=== PATIENT | female | born 1945 | race Caucasian/White ===

== ENCOUNTER 2021-11-07 10:00 | Outpatient (RCR) | payer OTHER, SELFPAY | END 2021-11-07 10:43 | disposition home or self-care (01) | LOC: HO.PT 10:00 | PROVIDERS: PCP Student in an Organized Health Care Education/Training Program; Visit Provider Obstetrics & Gynecology | DX: N39.3 Stress incontinence (female) (male) (principal) | CPT/HCPCS: 97112; 97161; 97530 ==

== ENCOUNTER 2025-02-21 13:13 | Emergency (ER) | payer OTHER, SELFPAY ==
--- NOTE | ~2025-02-21 | XR_ITS ---
EXAMINATION: XR CHEST CLINICAL INFORMATION: Mental status change COMPARISON: None available. TECHNIQUE: Frontal view of the chest was obtained. FINDINGS: The cardiac, hilar, and mediastinal contours are normal. Aortic mural calcifications. The lungs are clear bilaterally. No pneumothorax or effusion. No focal osseous or soft tissue abnormality. XR/XR chest 1V IMPRESSION: No active pulmonary disease. Electronically signed by: Gabino Caraballo MD 02/21/2025 02:44 PM EDT
[2025-02-21 13:34] VITALS: BP 160/98; PULSE 88; O2SAT 100
[2025-02-21 13:54] VITALS: BP 145/51; PULSE 92; RESP 18; TEMP 36.6; O2SAT 97; BMI 29.1
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
[2025-02-21 14:26] VITALS: BP 153/51; PULSE 94; RESP 14; TEMP 36.6; O2SAT 97
[2025-02-21 14:27] LABS: Hematocrit 43.3 % (37.0-47.0); Hemoglobin 14.0 g/dl (12.0-16.0); Imm Gran Abs Auto 0.03 X10*3/uL (0.00-0.03); Imm Gran Pct Auto 0.5 % (0.0-0.4); Lymphocytes Absolute Auto 0.7 X10*3/uL (1.2-4.9); MANUAL DIFF FLAG NO; Mean Corpuscular HGB Conc 32.3 g/dl (31.0-35.0); Mean Corpuscular Hemoglobin 28.6 pg (27.0-33.0); Mean Corpuscular Volume 88.5 fL (80.0-98.0); NRBC Abs Auto 0.000 X10*3/uL (0.0-0.012); NRBC Pct Auto 0.0 /100WBC (0.0-0.2); Platelet Count 155 X10*3/uL (160-400); Red Blood Count 4.89 X10*6/uL (4.20-5.50); White Blood Count 6.5 X10*3/uL (4.8-10.8)
[2025-02-21 14:31] LABS: Appearance Urine Clear; Glucose Urine UA Negative (Negative); PH 5.5 (5.0-9.0); Specific Gravity - Urine 1.010 (1.005-1.025)
[2025-02-21 14:48] LABS: Alanine Aminotransferase 24 U/L (0-31); Albumin Level 3.8 g/dL (3.5-5.0); Alkaline Phosphatase 62 U/L (39-117); Anion Gap 12 (12-20); Aspartate Amino Transferase 26 U/L (5-31); Blood Urea Nitrogen 10 mg/dL (9-16); Calcium 9.3 mg/dL (8.4-10.2); Carbon Dioxide 25 mmol/L (22-29); Chloride 104 mmol/L (96-108); Creatinine Clr Calc Pharmacy 41.4; Estimated Glomerular Filt Rate > 60; Lipase 19 U/L (8-78); Potassium 4.3 mmol/L (3.3-5.1); Sodium 137 mmol/L (135-145); Total Protein 6.4 g/dL (6.5-8.0)
[2025-02-21 14:57] LABS: Troponin-I High Sensitivity 13.2 ng/L (<3.5-17.0)
[2025-02-21 15:13] LABS: Resp Syncy Virus RNA Qual PCR NEGATIVE (Negative); SARS COV2 PCR INHOUSE NEGATIVE (Negative)
--- NOTE | 2025-02-21 18:00 | PC.NURSE ---
care team at bedside evaluating pt, pt is refereed for a psych consult
[2025-02-21 18:03] VITALS: BP 163/62; PULSE 85; RESP 18; O2SAT 100
--- OUTSIDE RECORDS SUMMARY | 2025-02-21 18:30 | XMS_ITS | Data Portability ---
Author Organization [email or web address] [facility], Ne in[employer] [facility] Address [address] [place] [address] Care Team Providers Care Insurance Assistant Name Role Phone HIM CCA OTHER SHANKAR CONNELL Primary Care Provider Assessment Encounter Date Assessment Date Assessment LastModified by Organization Details LastModified Time 09/11/2024 09/11/2024 Impression: 79yo/f with hx of HTN, HL, but no prior CHF diagnosis presents with 2-3 weeks of gradual onset bilateral pedal edema and mild dyspnea on exertion. [facility] called for evaluation by family member. Patient states has been in usual state of health, over above timeframe developed mild but gradually increased pedal edema bilaterally. States no history of the same, states not on a diuretic. No associated pain or redness in the lower extremities, no change in color or temperature. No associated numbness/weaknes s/paresthesias in the extremity, ambulating comfortably. No associated chest pain, back pain, pleurisy, however does endorse some mild dyspnea on exertion. Is walking in the home with medics without any increased work of breathing or respiratory distress. Her vitals show that she is mildly hypertensive but no tachycardia, no hypoxia. Her lungs are CTAB on medic exam, no wheezes/crackles /rhonchi. Rest of her exam is WNL. Plan: Clinical description of the event is consistent with what sounds to be venous insufficiency or mild CHF from hypertensive heart disease. Patient will need formal echo and in person evaluation for formal diagnosis. Underwent labs today to evaluate for other causes, including renal failure or anemia, labs today are unremarkable. Patient feels comfortable remaining at home and following up with PMD for further evaluation and treatment of edema, I believe it's reasonable to start her on low dose lasix until she can discuss with her PMD more definitive treatments. Instructed to reach out today to arrange followup in the next 1-2 days, instructed to monitor her symptoms at home and reach out immediately with any acute worsening or change in symptoms which she understands. Discharged from visit with mandatory timed followup and strict return instructions reviewed. Primary care, consider 48 hour followup Disposition: We discussed the diagnostic uncertainty of home visits and the risk associated with this. In this case, the patient and I felt this to be an acceptable and reasonable amount of risk given the benefit of avoiding an ED visit. We discussed the need to seek care urgently/emergen tly in the setting of any new or worsening serious symptoms [email or web address] Not available 09/11/2024 15:50:33 12/04/2024 12/04/2024 I provided real -time medical direction via phone for this encounter, and was available for additional phone based assistance as needed. I have reviewed and agree with the Assessment and Plan as documented by the Research Animal Facility Supervisor. We discussed the diagnostic uncertainty of home visits and the risk associated with this. In this case the patient and I felt this to be an acceptable and reasonable amount of risk given the benefit of avoiding an ED visit. The patient given the opportunity to ask questions. Advised if develops CP/severe SOB/turning blue/uncontrolle d n/v/d /AMS/ syncope/ hi fever/hot red or cold blue painful legs to call 911- she verbalized understanding of instructions to the medic pily Not available 12/05/2024 19:00:18 Plan of Treatment Reminders Order Date Submit Date Provider Last Modified By Organization Details Last Modified Time Details Appointments None recorded. Lab BMP, serum or plasma 2024 025 [facility], [address] [place] [address], [id number] 15:49:30 BMP, serum or plasma [address], [phone] 16:27:56 hemoglobin + hematocrit, blood [address], [id number] 16:28:31 Referral None recorded. Procedures None recorded. Surgeries None recorded. Imaging None recorded. Medication Orders furosemide 10 mg/mL injection solution 2024 025 [email or web address] 0 [facility], [address] [place] [address], [address], 11:27:57 potassium chloride ER 20 mEq tablet,exte nded release [address], [address], 05:01:06 potassium chloride ER 20 mEq tablet,exte nded release [address], [address], 05:01:06 furosemide 20 mg tablet [address], [address], 15:47:10 furosemide 20 mg tablet [address] [facility] #[id number], [address] [place] [address], [address], 15:51:27 Patient TargetsNo targets recorded. Patient InstructionsNo instructions recorded. Reason for Referral None Reported. Results Created Date Observation Date Name Description Value Unit Range Abnormal Flag Note LastModifiedBy Organization Detail LastModifiedTime Result Notes None recorded. Medical Equipment None Reported. Allergies Allergen ID Allergen Name Allergen Category Reaction Reaction Severity Criticality Documentation Date Start Date Code Code System Note Provider Name and Address Organization Details Recorded Time 35832 metoprolo l Not available Not available Not available Not available 12/05/2024 6918 RxNorm verif ied w/ quiana Thompson MD 30 [facility],[address], [place], [phone], [facility], [employer] 19:05:15 No known drug allergies Medications Name Sig Start Date Stop Date Status Note LastModified by Organization Details LastModified Time metformin 500 mg tablet TAKE 1/2 TABLET BY MOUTH 2 TIMES A DAY,X90 DAYS active Not Available Not Available No t Available atorvastati n 10 mg tablet TOME 1 TABLETA POR V A ORAL TODOS LOS D active Not Available Not Available No t Available valacyclovi r 1 gram tablet TAKE 1 TABLET BY MOUTH THREE TIMES A DAY FOR 7 DAYS WITH PLENTY OF FLUIDS active Not Available Not Available No t Available enalapril maleate 20 mg tablet TOME DOS TABLETAS POR VIA ORAL 2 TIMES A DAY FOR BLOOD PRESSURE active Not Available Not Available No t Available senna 8.6 mg tablet TOME JOSÉ MIGUEL O DOS TABLETAS POR V A ORAL AL ACOSTARSE CUANDO SEA NECESARIO FOR CONSTIPAT ION active Not Available Not Available No t Available FreeStyle Lancets 28 gauge USE DIRECTED CHECK BLOOD SUGAR DOS VECES AL D A active Not Available Not Available No t Available meclizine 12.5 mg tablet TOME JOSÉ MIGUEL TABLETA POR V A ORAL PHILIP VECES AL D A FOR 5 DAYS active Not Available Not Available No t Available chlorthalid one 25 mg tablet TOME 1 TABLETA POR V A ORAL TODOS LOS D active Not Available Not Available No t Available aspirin 81 mg tablet,priyanak yed release TOME JOSÉ MIGUEL TABLETA TODOS LOS D active Not Available Not Available No t Available acetaminoph en 500 mg tablet TOME DOS TABLETAS POR V A ORAL PHILIP VECES AL D A FOR 14 DAYS NEEDED FOR MODERATE PAIN active Not Available Not Available No t Available amlodipine 10 mg tablet TOME 1 TABLETA POR V A ORAL TODOS LOS D active Not Available Not Available No t Available hydrocortis one 1 % topical cream APPLY A THIN FILM TO AFFECTED SKIN TOPICALLY TWICE DAILY + RUB IN GENTLY AND COMPLETEL Y FOR 14 DAYS active Not Available Not Available No t Available furosemide 20 mg tablet take 2 tablets(4 0mg) daily for 4 days then 20mg daily active Not Available Not Available No t Available loratadine 10 mg tablet TOME 1 TABLETA POR V A ORAL TODOS LOS D CUANDO SEA NECESARIO FOR SINUS SYMPTOMS FOR 30 DAYS active Not Available Not Available No t Available Vitamin D3 25 mcg (1,000 unit) capsule TOME 1 C PSULA POR V A ORAL TODOS LOS D active Not Available Not Available No t Available olmesartan 20 mg-hydrochl orothiazide 12.5 mg tablet TOME JOSÉ MIGUEL TABLETA POR V A ORAL CADA MA ELIESER active Not Available Not Available No t Available budesonide- formoterol HFA 80 mcg-4.5 mcg/actuati on aerosol inhaler PLEASE SEE ATTACHED FOR DETAILED DIRECTION S active Not Available Not Available No t Available FreeStyle Lite Strips USE DIRECTED CHECK BLOOD SUGAR DOS VECES AL D A active Not Available Not Available No t Available FreeStyle [place] Lite kit CHECK TWICE A DAY active Not Available Not Available No t Available diclofenac 1 % topical gel APLIQUE AL LETTY AFECTADA CUATRO VECES AL D A active Not Available Not Available No t Available potassium chloride ER 20 mEq tablet,exte nded release Take 1 tablet every day by oral route for 4 days. 12/15 completed Not Available Not Available Not Available Vitals Date Recorded Body temperature Oxygen saturation Oxygen saturation in Arterial blood by Pulse oximetry Respiratory rate Heart rate Systolic And Diastolic Provider Name and Address Organization Details Last Updated DateTime 97.8 [degF] 99 % 99 % 18 /min 90 /min 164/96 mm[Hg] Not Available [employer] 14:49:21 Date Recorded Body weight Provider Name an d Address Organization Details Last Updated DateTime 12/04/2024 13499.86 g Juan Pablo Cespedes [address] [place] [address],[address] [facility], [place], [address], [place] - [facility] 12/05/2024 18:55:36 Date Recorded Respiratory rate Heart rate Body temperature Oxygen saturation Oxygen saturation in Arterial blood by Pulse oximetry Systolic And Diastolic Provider Name and Address Organization Details Last Updated DateTime 5 16 /min 79 /min 97.2 [degF] 99 % 99 % 170/84 mm[Hg] Not Available [employer] 11:21:08 Date Recorded Oxygen saturation Oxygen saturation in Arterial blood by Pulse oximetry Body temperature Respiratory rate Heart rate Systolic And Diastolic Provider Name and Address Organization Details Last Updated DateTime 99 % 99 % 99.6 [degF] 18 /min 95 /min 174/91 mm[Hg] Not Available [employer] 20:24:47 Social History None recorded. Functional Status None recorded. Mental Status None recorded. Family History Nothing Reported. Medical History No medical history recorded. Gynecological HistoryNo gynecological history recorded. Obstetrics History GPAL:G 0 P 0 0 0 0 Past Encounters Encounter ID Performer Location Encounter Start Date Encounter Closed Date Diagnosis/Indication Diagnosis SNOMED-CT Code Diagnosis ICD10 Code Diagnosis IMO Codes Diagnosis Note [id number] Gabino Tatum MD [address] [address] 09/11/2024 14:49:17 09/11/2024 21:01:44 Edema of foot 990360859 R60.0 [id number] Cheri Thompson MD [address] [address] 12/04/2024 11:20:56 12/05/2024 19:09:33 Peripheral edema 760115637 R60.0 [id number] Patient with normal electrolyt es and normal renal function. With increased Lasix will urinate more and could potentiall y drop her potassium so will provide potassium now and for the next 4 days. also advised since we gave meds in home to start both RX tomorrow The medic does not have any short acting potassium. Explained to take Lasix 2 tablets(40 mg) daily x 4 days then revert to 20 mg dailyEleva te legs, low-salt diet. Must follow-up with PCP.- pat verbalized understand [facility] [id number] Nieves Moreno MD [address] [address] 01/12/2025 20:24:42 01/14/2025 15:32:25 Edema of lower extremity 223110626 R60.0 [id number] 79 year old female with dementia, being evaluated for lower extremity edema for the last few days. Patient with family, who are currently managing her care, who report concerns about her long-term living arrangemen ts, and jeremiein g assisted living. She is not on a standing dose of diuretic, but instead has been on intermitte nt dosing which has just been completed. She has no respirator y symptoms. Exam notable for BP 174/91 with otherwise normal vital signs, and bilateral pitting edema, clear lungs. Presentati on suggestive of recurrent volume overload without clear etiology. Recommende d IV diuresis today, however patient's family reporting concerns about patient remaining at home without supervisio n overnight, and unclear whether they can arrange appropriat e care for her in the near future. Family ultimately choosing to go to the hospital for work up and dispositio n planning. I have reviewed and agree with the assessment and plan as documented by the excel expert. I provided real-time medical direction for this encounter and was immediatel y available to provide additional phone-base d assistance as needed. We discussed the diagnostic uncertaint y of home visits and associated risks. We discussed the need to seek care urgently/e mergently in the setting of any new or worsening symptoms. Health Concerns Section Related Observation LastModified by Organization Detai ls LastModified Time None Recorded Concern Status LastModified by Organization Details LastModified Time None Recorded Advance Directives Directive None Recorded Payers Insurance Date Sequence Insurance Name Policy Number Policy Solano Covered Member ID Solano Member ID Guarantor Name 01/12/2025 1 [facility] - DOS ON OR AFTER 2022 - DUAL ELIGIBLE - [facility] OPT[employer] AND ONE [employer] (MEDICARE REPLACEMENT/AD VANTAGE - HMO) Sneha Perez [id number] Sneha Perez Notes Date Note Type Note Provider Name and Address Organization Details Recorded Time 09/11/2024 text/html ROS as noted in the HPI CRC Nurse Triage Notes (Emre Sands): Reason For Request: Patient has swollen Feet, and Tingling, diabetic. Denies: Barnes Flash, circumferential barnes Barnes reported with black tissue to the area Open skin area after a fall with uncontrolled bleeding Abscess/infection with streaking noted, presence of fever or without Chief Complaints: Extremity Swelling PMH: Diabetes Mellitus Type 2, Hyperlipidemia, Hypertension PMH Reviewed at 09/11/2024 - 12: Allergies Reviewed at 09/11/2024 - 12: Comments: 79 y.o female complains of Extremity Swelling Additional PMH: Vertigo Pt's granddaughter calling reporting patient with bilateral foot swelling, L greater then R. Pt also reporting pt's feet feel tingly. Pt reports this is the first time her feet have been swollen like this. Pt has diabetes. Granddaughter denies feet being red or hot to the touch, granddaughter reports feet currently feel cold to the touch. Pt denies fever or chills. I provided information on the mobile health provider response time and advised the patient and/or caregiver to monitor reported signs and symptoms. I discussed the warning signs of when to seek emergency care -Blanca Sands RN Research Animal Facility Supervisor Organization Information for Srinivas Ontiveros Business Legal Name: [employer] Address: [address] [place] [address], Fly Worker: Nelson [place] No.: [id number] Research Animal Facility Supervisor POC Test Results from Srinivas Ontiveros [employer] Chem8+ (15:04:14) Na: 137 mEq/L K: 3.5 mEq/L Cl: 98 mEq/L iCa: 1.20 mmol/L TCO2: 24 mmol/L Glu: 150 mg/dL BUN: 17 mg/dL Crea: 0.7 mg/dL Hct: 44 % Hb: 15.0 g/dL A mmol/L Cartridge Number: [id number] Attachments uploaded as part of this test result can be found under Documents section. ...................... ...................... ...................... ...................... ...................... ...................... ......... Research Animal Facility Supervisor Note From Srinivas Ontiveros: Encountered patient, conscious alert and ambulatory. Patient reports approximately three weeks of increased bilateral lower extremity edema, accompanied by shortness of breath upon exertion, but not at rest. Patient denies chest pain, shortness of breath at rest and acute changes in vision. Skin is warm, dry and of appropriate color for ethnicity. Head and neck free of trauma and edema.-JVD. Breath sounds present clear and equal bilaterally. Abdomen is soft, non-tender and non-distended. Upper extremities, free of trauma and edema. Lower extremities exhibit bilateral 3+ edema; peripheral pulses present in all extremities. [facility] contacted: BMP performed, values uploaded via [employer]. Physician reports they will send a prescription for treatment at patient s pharmacy of choice and encourages patient to attempt to see her primary care doctor as soon as she is able. Patient was urged to monitor for chest pain, shortness of breath and fevers. Patient verbalizes understanding of the plan and states she is comfortable with remaining home at this time. [facility] Lab Orders: BMP, serum or plasma: Performed hemoglobin + hematocrit, blood: Performed ...................... ...................... ...................... ...................... ...................... ...................... ......... [facility] Consulted: Gabino Tatum ...................... ...................... ...................... ...................... ...................... ...................... ......... Disposition: Fulfilled Gabino Tatum MD [address] [place] [address],[address], [place], [address], [employer] 09/11/2024 15:51:32 12/04/2024 text/html ROS as noted in the [facility] CRC Nurse Triage Notes (Emre Sands): Reason For Request: Patient has pain in her legs, on a water pill, wants checked out.Denies: Barnes Flash, circumferential barnes Barnes reported with black tissue to the area Open skin area after a fall with uncontrolled bleeding Abscess/infection with streaking noted, presence of fever or without Chief Complaints: Extremity PainPMH: Diabetes Mellitus Type 2, Hyperlipidemia, Hypertension, Dementia (e.g., Alzheimer's Disease)PMH Reviewed at 12/04/2024:18Allergies Reviewed at 12/04/2024:18Comments: Granddaughter unable to confirm patient's allergies at time of call, granddaughter reports she has access to patient's medical portal. Asked granddaughter to please have a list of patient's allergies ready for time of visit79 y.o female complains of Extremity PainPatient's granddaughter calling reporting patient has been complaining of leg pain. Patient takes Lasix at baseline. Granddaughter reports patient's legs are harder then normal and they want to make sure nothing else is causing patient's pain. Not crazy red per granddaughter when asked about the color of patient's legs. No known fever or chills. I provided information on the mobile health provider response time and advised the patient and/or caregiver to monitor reported signs and symptoms. I discussed the warning signs of when to seek emergency care -Blanca Sands RN Research Animal Facility Supervisor Organization Information for Phil Langford Legal Name: [facility] TransportationAddress: [address] [place] [address], [place] [address], Medical Director: Abhijit Ramsay [facility] No.: [id number] Research Animal Facility Supervisor POC Test Results from Phil Langford [facility] (11:14:42)pH: 7.48pH unitspCO2: 39.5ayNbbR2: 66.7mmHgNa: 142mmol/LK: 3.9mmol/LiCa: 1.21mmol/LCl: 103mmol/LTCO2: 28.5mEq/LHct: 41%Hb: 14.1g/dLGlu: 162mg/dLLac: 1.00mmol/LCr: 0.58mg/dLBUN: 13mg/dLAmmol/LHCO3: 30.0mmol/L ...................... ...................... ...................... ...................... ...................... ...................... ......... Research Animal Facility Supervisor Note From Phil Langford: This visit is for an 79-year-old female with a history including but not limited to DM type II, dementia, HTN, HLD. Patient's granddaughter requested a visit address ongoing bilateral lower extremity edema for over one month. Granddaughter states patient was seen in the ED month ago and prescribed furosemide 20 mg daily. Patient had negative cardiac will work up which ruled out CHF. Patient saw PCP on 11/20/24, PCP did not address the edema not continue the prescription, will run out in two days. Patient denies any chest pain, shortness of breath, headaches, dizziness, fevers, nausea, vomiting, diarrhea. Allergy to metoprolol. Patient presents awake and alert, in no acute distress and speaking full sentences. She is mildly hypertensive, vital signs are otherwise reasonably stable and she is afebrile. Nonfocal neurological exam. Lungs are clear throughout auscultation. Abdomen is soft, nontender, nondistended. +3 bilateral lower extremity pitting edema, no erythema or palpable cords. Unremarkable POC labs are uploaded. I treated with furosemide 40 mg IVP and potassium chloride ER 20 mEq PO. We discussed the diagnostic uncertainty of home visits and the risk associated with this. In this case, the patient and I felt this to be an acceptable and reasonable amount of risk given the benefit of avoiding an ED visit. I provided education on the patient's prescriptions as well as the importance of tracking daily weights and a low sodium diet. I instructed them to follow up with the patient's PCP today and present the patient to the emergency department for any new or worsening severe symptoms such as chest pain, severe shortness of breath, high fever, altered mental status, hot red or cold blue painful legs. The patient and her granddaughter were given the opportunity to ask questions and are agreeable to this plan. [facility] Lab Orders: BMP, serum or plasma: Performed [facility] Medication Orders: furosemide 10 mg/mL injection solution: Performed potassium chloride ER 20 mEq tablet,extended release: Performed ...................... ...................... ...................... ...................... ...................... ...................... ......... [facility] Consulted: Cheri Thompson ...................... ...................... ...................... ...................... ...................... ...................... ......... Disposition: Fulfilled Cheri Thompson MD [address] [place] [address],[address], [place], [phone] [employer] 12/05/2024 19:05:34 01/12/2025 text/html CRC Nurse Triage Notes (Denise Kim): Reason For Request: legs are swollen/blisters on legs Patient Reports: Palpitations, feeling dizzyDenies: History of Heart Attack, in the setting of active chest pain Active Chest pain, radiates to neck jaw and or arm Diaphoretic/Sweating Describes as c rushing Sudden onset of nausea/Vomiting and shortness of breath. Shortness of Breath Unable to speak in full sentences without distress Chest pain, increased fatigue CHF history, increased swelling and edema Weakness/tachycardia Chief Complaints: Extremity Swelling, Extremity Pain, Wound CarePMH: Diabetes Mellitus Type 2, Hyperlipidemia, Hypertension, Dementia (e.g., Alzheimer's Disease)PMH Reviewed at 01/12/2025 - 18:37[facility] Reviewed at 01/12/2025 18:37Comments: 79 y.o female complains of Extremity Swelling, Extremity Pain, Wound CarePatients granddaughter making referralPatients symptoms have been chronically getting worse with swelling in bilateral lower extremities up to her knees and has open blisters leaking fluidShe states they are tight painful and can barely walk.BP 145/79 Pulse 84 - taken 5 minutes ago.She hasn't had her medications today. She has dementia and forgets at times to take themstatesPCP is aware of swellingstates has a cardiology appointment for echo on 04/27she states she had some dizziness earlier today but not currentlydenies any shortness of breathno nausea no vomiting.denies any kidney disease that she is aware of and is not on any blood thinners.requesting insted visit for evaluationI provided information on the mobile health provider response time and advised the patient and/or caregiver to monitor reported signs and symptoms. I discussed the warning signs of when to seek emergency care. ...................... ...................... ...................... ...................... ...................... ...................... ......... Research Animal Facility Supervisor Note From Ly Hernandez: Sent to a call for a pt complaining of bilateral lower extremity edema. SC8 arrives on scene, pt is alert and confused at baseline. Pt's granddaughter states pt has been dealing with BLE edema x 2 months with intermittent treatment of Furosemide. Pt's granddaughter states pt's last round of Furosemide finished on Wednesday, and pt has had worsening lower extremity edema and pain since then. Family states pt doesn't have a DIRECTOR [employer] right now and needs care that family is not able to provide. Family states due to pt's confusion pt doesn't keep her legs elevated and pt's legs/feet are too swollen for compression socks. Family is also concerned because pt had a blister that popped on right lower leg. Family is concerned because nobody can stay at home tonight with pt even if she receives diuretics to help with edema. Family requests that pt be sent to ED for further eval/treatment as pt isn't safe to stay at home. BP:174/91, P:95, RR:18, SpO2:99% RA, T:99.6; Head: unremarkable; Lung sounds: clear bilaterally; Abdomen: soft, non-tender, no distention; Back: unremarkable; Skin: pink, warm, dry; [facility] consulted and family is advised ED is not a custodial solution as pt will most likely be treated and sent back home. Family states they need some time to decide if pt needs to be placed in assisted living, or if family can arrange more [employer] hours/more accessible housing. Family states they understand and will try to arrange pt's affairs, but still request pt transport to [facility] ED. 911 called; Pt care transferred to [facility] Dept. ...................... ...................... ...................... ...................... ...................... ...................... ......... [facility] Consulted: Nieves Moreno ...................... ...................... ...................... ...................... ...................... ...................... ......... Disposition: Fulfilled Nieves Moreno MD [address] [facility],[address] [facility], [place], [address], SHAN GARCIA 01/12/2025 22:29:13 OBGyn Episode No OBEpisode recorded.
--- OUTSIDE RECORDS SUMMARY | 2025-02-21 18:30 | XMS_ITS | Encounter Summary ---
Author Organization [facility] Address [address] [facility] [address] [place] [address] Encounters * CPT with Medical instED at [place] on 2024-12-04 { reasonForRequest : Patient has pain in her legs, on a water pill, wants checked out. , patientReports : , denies :[ Barnes Flash, circumferential barnes , Barnes reported with black tissue to the area , Open skin area after a fall with uncontrolled bleeding , Abscess/infection with streaking noted, presence of fever or without ], chiefComplaints : Extremity Pain , pmh :"Diabetes Mellitus Type 2, Hyperlipidemia, Hypertension, Dementia (e.g., Alzheimer's Disease)&quot ;, allergies : , otherAllergies : UNKNOWN , painAssess ment : , visitOutcome : , additionalComments : Granddaughter unable to confirm patient's allergies at time of call, granddaughter reports she has access to patient's medical portal. Asked granddaughter to please have a list of patient's allergies ready for time of visit\n79 y.o female complains of Extremity Pain\nPatient's granddaughter calling reporting patient has been complaining of leg pain. Patient takes Lasix at baseline. Granddaughter reports patient's legs are harder then normal and they want to make sure nothing else is causing patient's pain. Not \ crazy red\ per granddaughter when asked about the color of patient's legs. No known fever or chills. I provided information on the mobile health provider response time and advised the patient and/or caregiver to monitor reported signs and symptoms. I discussed the warning signs of when to seek emergency care -Blanca Sands RN } This visit is for an 79-year-old female with a history including but not limited to DM type II, dementia, HTN, HLD. Patient's granddaughter requested a visit address ongoing bilateral lower extremityedema for over one month. Granddaughter states patient [...] and reasonable amount of risk given the benefitof avoiding an ED visit. I provided education [...] questions and are agreeable to this plan. IV_(FLUIDS_AND/OR_MEDICATION), MEDICATION_IM, ORAL_MEDICATION, WOUND_CARE, ORTHOSTATIC_VITAL_SIGNS Written by Medical Rosendo on 2024-12-04
--- OUTSIDE RECORDS SUMMARY | 2025-02-21 18:30 | XMS_ITS | Continuity of Care Document ---
Author Name instED, Medical Address [address] [place] [address] Organization Unknown Address [address] [place] [address] Medications No known medications Problems No known problems
--- OUTSIDE RECORDS SUMMARY | 2025-02-21 18:30 | XMS_ITS | Continuity of Care Document ---
Author Name instED, Medical Address [address] [place] [address] Organization Unknown Address [address] [place] [address] Medications No known medications Problems No known problems
--- OUTSIDE RECORDS SUMMARY | 2025-02-21 18:30 | XMS_ITS ---
Author Organization [facility] Care Team Providers Care Director Product Management Name Role Phone Michelle Cardenas Unavailable Unavailable Edmar [employer], Dariana Olmos Unavailable Unavailable Nithya Mena Unavailable Unavailable Allergies and adverse reactions Code CodeSystem Substance Reaction Severity StartDate Concern Status 6918 RXNORM Metoprolol Moderate 02/20/2025 active Care Team Name Role Address Phone Organization Dates Michelle Cardenas PCP [address] (Office): : [facility] 02/20/2025 - present Dariana Hyatt NP [address] (Office): [facility] 02/20/2025 - [place], [address], [place]Office): [facility] 02/20/2025 - present Encounters Encounter Type Code Code System Description Performer Discharge Disposition Service Delivery Location Date Ambulatory Encounter CPT Code = [address] Spinal stenosis of lumbar region [facility] Address: [address] [place], [address], [facility]. 02/20 Ambulatory Encounter CPT Code = [id number] Degeneration of lumbar intervertebral disc [facility] Address: [address], [place], [address], [facility]. 02/20 Ambulatory Encounter CPT Code = [id number] Lumbar discogenic pain [facility] Address: [address] [facility] [place] [place] [address] [place] [address]. 02/20 Ambulatory Encounter CPT Code = [id number] Osteoarthritis of hip [facility] Address: [address] , [facility] [place], [address] [place] [address]. 02/20 Ambulatory Encounter CPT Code = [id number] Arthropathy of multiple joints [facility] Address: [address] [facility] [place] [place], [address] [place] [address]. 02/20 Ambulatory Encounter CPT Code = [id number] Dementia [facility] Address: [address] [facility] [place], [address] [place] [address]. 02/20 Ambulatory Encounter CPT Code = [address] Behavior finding [facility] Address: [address] [facility] [place] [place], [address] [place] [address]. 02/20 Ambulatory Encounter CPT Code = [address] Hyperlipidemia [facility] Address: [address] [facility] [place], [address] [place] [address], [facility]. 02/20 Ambulatory Encounter CPT Code = [id number] Type 2 diabetes mellitus without complication [facility] Address: [address] [place], [place] [address]by [facility] [place], [address] [place] [address]. 02/20 Ambulatory Encounter CPT Code = [address] Essential hypertension [facility] Address: [address] [facility] [place], [address] [place] [address]. 02/20 Ambulatory Encounter CPT Code = [id number] Pain of left knee region [facility] Address: [address] [place], [place] [address] [place], [address] [place] [address]. 02/20 Goals Section Goals Description Status Target Date Sneha wishes to return home with services prior to the next review date. Active 05/21/2025 Sneha's Advanced Directives will be honored thr ough next review Active 05/21/2025 Functional Status Code Name Recorded Time Value Entered By Chair/[id number] transfer 02/21/2025 Not assessed apinto Does the resident use a whee lchair and/or scooter? 02/21/2025 Not assessed apinto Eating 02/21/2025 Not assessed apinto Indicate the type of wheelchair or scooter used 2024 Not assessed apinto Lower body dressing 02/21/2025 Not assessed apinto Lying to sitting on side of bed 02/21/2025 Not asses sed apinto Oral hygiene 02/21/2025 Not assessed apinto Personal hygiene 02/21/2025 Not assessed apinto Putting on/taking off footwear 02/21/2025 Not assess ed apinto Roll left and right 02/21/2025 Not assessed apinto Shower/bathe self 02/21/2025 Not assessed apinto Sit to lying 02/21/2025 Not assessed apinto Sit to stand 02/21/2025 Not assessed apinto Toilet transfer 02/21/2025 Not assessed apinto Toileting hygiene 02/21/2025 Not assessed apinto Transferring 02/21/2025 Not assessed apinto Upper body dressing 02/21/2025 Not assessed apinto Walk 10 feet 02/21/2025 Not assessed apinto Walk 150 feet 02/21/2025 Not assessed apinto Walk 50 feet 02/21/2025 Not assessed apinto Wheel 150 feet 02/21/2025 Not assessed apinto Wheel 50 feet with two turns 02/21/2025 Not assessed apinto Immunizations Immunization Status Vaccine Details Vaccine Code CodeSystem Date Notes Influenza-High Dose(Fluzone) completed created date: 02/20/2025 administere d date: 03/31/2024 PVC20 completed Pneumococcal conjugate vaccine 20-valent (PCV20), polysaccharide EKI626 conjugate, adjuvant, preservative free 216 CVX created date: 02/20/2025 administere d date: 11/14/2021 Medications Section Medication Name Status Code CodeSystem Dose Route Frequency Admin Type Sig Text Start Date End Date Indication Fleet Enema Enema 7-19 GM/118ML active 56802 5 RXNORM 1 dose Rectal as needed PRN Inser t 1 dose recta lly every 24 hours as neede d for Const ipati on (Step 3) as neede d if no bowel movem ent for 8 hours after bisac odyl suppo sitor y. 2024 - Constipatio n Milk of Magnesia Suspension 400 MG/5ML active 10247 7 RXNORM 30 ml Oral as needed PRN Give 30 ml by mouth every 24 hours as neede d for Const ipati on (Step 1) As neede d if no bowel movem ent for three days. (Do not use for Hemod ialys is patie nts). 2024 - Constipatio n Glutose 45 Gel 40 % active 01828 87 RXNORM 1 dose Oral as needed PRN Give 1 dose by mouth as neede d for hypog lycem ic simran col Give one tube PO/SL if FSBS <50 and able to swall ow PRN. Reche ck FSBS 10 minut es after admin istra tion and call provi chris. 2024 - hypoglycemi c protocol GlucaGen HypoKit Solution Reconstitut ed 1 MG active 97583 5 RXNORM 1 mg Subcut aneous as needed PRN Injec t 1 mg subcu taneo usly as neede d for hypog lycem ic simran col Speci al instr uctio ns: Gluca gen 1 mg hypok it subcu taneo us if FSBS below 60 and unabl e to swall ow. R echec k FSBS in 10 minut es and updat e provi chris. 2024 - hypoglycemi c protocol Acetaminoph en Tablet 325 MG active 77501 2 RXNORM 2 table t Oral as needed PRN Give 2 table t by mouth every 6 hours as neede d for Pain Pain Total dosag e for aceta minop hen and medic ation s that conta in aceta minop hen shoul d not excee d 3 grams / 24 hours . AND Give 2 table t by mouth every 6 hours as neede d for Fever great er than 100.0 F Total dosag e for aceta minop hen and medic ation s that conta in aceta minop hen shoul d not excee d 3 grams / 24 hours . 2024 - Pain 76707 2 RXNORM 2 table t Oral as needed PRN Give 2 table t by mouth every 6 hours as neede d for Pain Pain Total dosag e for aceta minop hen and medic ation s that conta in aceta minop hen shoul d not excee d 3 grams / 24 hours . AND Give 2 table t by mouth every 6 hours as neede d for Fever great er than 100.0 F Total dosag e for aceta minop hen and medic ation s that conta in aceta minop hen shoul d not excee d 3 grams / 24 hours . 2024 - Fever greater than 100.0F Bisacodyl Suppository 10 MG active 9 RXNORM 1 suppo sitor y Rectal as needed PRN Inser t 1 suppo sitor y recta lly as neede d for If no bowel movem ent for 8 hours after Milk of Magne rizwan 2024 - If no bowel movement for 8 hours after Milk of Magnesia Benicar Oral Tablet 20 MG active 65805 0 RXNORM 1 table t Oral one time a day Routin e Give 1 table t by mouth one time a day for HTN 2024 - HTN metFORMIN HCl Oral Tablet 500 MG active 20719 7 RXNORM 1 table t Oral one time a day Routin e Give 1 table t orall y one time a day for DM 2024 - DM Lasix Oral Tablet 20 MG active 1 RXNORM 1 table t Oral two times a day Routin e Give 1 table t orall y two times a day for CHF until 03/02 23:59 03/03 CHF Atorvastati n Calcium Oral Tablet 10 MG active 88553 2 RXNORM 1 table t Oral one time a day Routin e Give 1 table t by mouth one time a day for To treat terrie strol 2024 - To treat cholestrol Lasix Oral Tablet 40 MG active 9 RXNORM 40 mg Oral at bedtime Routin e Give 40 mg by mouth at bedti me for CHF 2024 - CHF Symbicort Inhalation Aerosol 80-4.5 MCG/ACT active 67675 90 RXNORM 2 puff Inhala tion as needed PRN 2 puff inhal e orall y every 12 hours as neede d for SOB 2024 - SOB traZODone HCl Oral Tablet aborted 25 mg Oral as needed PRN Give 25 mg by mouth every 24 hours as neede d for Anxie ty At bedti me 02/21 Anxiety Klor-Con M20 Oral Tablet Extended Release active 20 mEq Oral one time a day Routin e Give 20 mEq by mouth one time a day relat ed to HYPER LIPID EMIA, UNSPE CIFIE D (E78. 5) 2024 - - SEROquel Oral Tablet 25 MG active 06025 8 RXNORM 1 table t Oral at bedtime Routin e Give 1 table t by mouth at bedti me relat ed to UNSPE CIFIE D DEMEN TIA, UNSPE CIFIE D SEVER ITY, WITHO UT BEHAV IORAL DISTU RBANC E, PSYCH OTIC DISTU RBANC E, MOOD DISTU RBANC E, AND ANXIE TY (F03. 90) 2024 - - Senna Oral Tablet 8.6 MG active 1 table t Oral one time a day Routin e Give 1 table t by mouth one time a day for const ipati on 2024 - constipatio n traZODone HCl Oral Tablet aborted 1 table t Oral as needed PRN Give 1 table t by mouth every 8 hours as neede d for anxie ty 02/21 anxiety traZODone HCl Oral Tablet active 25 mg Oral as needed PRN Give 25 mg by mouth every 8 hours as neede d for anxie ty 2024 - anxiety Insurance Providers Plan of Treatment Section Interventions Intervention Code Code System Display Name Proposed D ate Problems Problem # Description Date of onset Resolved Date Code CodeSystem Concern Status 1 ESSENTIAL (PRIMARY) HYPERTENSION [address] active 2 HYPERLIPIDEMIA, UNSPECIFIED [address] active 3 OTHER INTERVERTEBRAL DISC DEGENERATION, LUMBAR REGION WITH DISCOGENIC BACK PAIN AND LOWER EXTREMITY PAIN [address] active 4 OTHER INTERVERTEBRAL DISC DEGENERATION, LUMBAR REGION WITHOUT MENTION OF LUMBAR BACK PAIN OR LOWER EXTREMITY PAIN [address] active 5 OTHER SPECIFIED INFLAMMATORY SPONDYLOPATHIES, MULTIPLE SITES IN SPINE [address] active 6 OTHER SYMPTOMS AND SIGNS INVOLVING APPEARANCE AND BEHAVIOR [address] active 7 PAIN IN LEFT KNEE [address] active 8 SPINAL STENOSIS, LUMBAR REGION WITHOUT NEUROGENIC CLAUDICATION [address] active 9 TYPE 2 DIABETES MELLITUS WITHOUT COMPLICATIONS [address] active 10 UNILATERAL PRIMARY OSTEOARTHRITIS, LEFT HIP [address] active 11 UNSPECIFIED DEMENTIA, UNSPECIFIED SEVERITY, WITHOUT BEHAVIORAL DISTURBANCE, PSYCHOTIC DISTURBANCE, MOOD DISTURBANCE, AND ANXIETY [address] active Reason for Referral No Reasons for Referral Entered Social History Social History Observation Description Start Date End Date Code Code System Current Smoking Status Tobacco smoking consumption unknown 612866503 SNOMED CT Sex Assigned At Female 1945 [address]13-2 [facility] Gender Identity Sexual Orientation Vital Signs Code Code System Vitals Name Values and Units Timing Information 84964-9 [facility] Pain Level Value=1.0 02/21/2025 9279-1 [facility] Respiratory Rate Value=18.0 Units=/m in 02/21/2025 8867-4 [facility] Heart rate Value=76.0 Units=/min 8462-4 [facility] Blood Pressure-Diastolic Value=69 Un its=mmHg 02/21/2025 8480-6 [facility] Blood Pressure-Systolic Ifcae=330 Un its=mmHg 02/21/2025 8310-5 [facility] Body Temperature Value=98.3 Units= F 02/21/2025
--- OUTSIDE RECORDS SUMMARY | 2025-02-21 18:30 | XMS_ITS | Encounter Summary ---
Author Organization [facility] Address [address] [place] [address] Encounters * CPT with Medical instED at [employer] on 2025-01-13 { reasonForRequest : legs are swollen/blisters on legs , patientReports&quo t;: Palpitations, feeling dizzy , denies :[ History of Heart Attack, in the setting of active chest pain , Active Chest pain, radiates to neck jaw and or arm ,"Diaphoretic/Sweating , Describes as crushing , Sudden onset of nausea/Vomiting and shortness of breath. , Shortness of Breath , Unable to speak in full sentences without distress , Chest pain, increased fatigue , CHF history, increased swelling and edema , Weakness/tachycardia ], chiefComplaints : Extremity Swelling, Extremity Pain, Wound Care , pmh : Diabetes Mellitus Type 2, Hyperlipidemia, Hypertension, Dementia (e.g., Alzheimer's Disease) , allergies :"No Known Drug Allergies , otherAllergies : , painAssessment :& quot; , visitOutcome : , additionalComments : 79 y.o female complains of Extremity Swelling, Extremity Pain, Wound Care\nPatients granddaughter making referral\nPatients symptoms have been chronically getting worse with swelling in bilateral lower extremities up to her knees and has open blisters leaking fluid\nShe states they are tight painful and can barely walk.\nBP 145/79 Pulse 84 - taken 5 minutes ago. \nShe hasn't had her medications today. She has dementia and forgets at times to take them\nstates \nPCP is aware of swelling\nstates has a cardiology appointment for echo on 04/27\nshe states she had some dizziness earlier today but not currently\ndenies any shortness of breath\nno nausea no vomiting. \ndenies any kidney disease that she is aware of and is not on any blood thinners. \nrequesting insted visit for evaluation\nI provided information on the mobile health provider response time and advised the patient and/or caregiver to monitorreported signs and symptoms. I discussed the warning signs of when to seek emergency care. } Sent to a call for a pt complaining of bilateral lower extremity edema. [facility] arrives on scene, pt isalert and confused at baseline. Pt's granddaughter states pt has been dealing with BLE edema x 2 months with intermittent treatment of Furosemide. Pt's granddaughter states pt's last round of Furosemide finished on Wednesday, and pt has had worsening lower extremity edema and pain since then. Family states pt doesn't have a DISPATCHER CLERK right now and needs care that family [...] ED for further eval/treatment as pt isn't safeto stay at home. BP:174/91, P:95, RR:18, SpO2:99% RA, T:99.6; Head: unremarkable; Lung sounds: clear bilaterally; Abdomen: soft, non-tender, no distention; Back: unremarkable; Skin: pink, warm, dry; [facility] consulted and family is advised ED is not a nursing home solution as pt will most likely be treatedand sent back home. Family states they need some time to decide if pt needs to be placed in assisted living, or if family can arrange more DISPATCHER CLERK hours/more accessible housing. Family states they understand and will try to arrange pt's affairs, but still request pt transport to [facility] ED. 911 called; Pt care transferred to [place]. IV_(FLUIDS_AND/OR_MEDICATION), MEDICATION_IM, ORAL_MEDICATION, WOUND_CARE, ORTHOSTATIC_VITAL_SIGNS Written by Medical instED on 2025-01-13
[2025-02-21 20:07] LABS: Glucose, Whole Blood 160 mg/dL (60-115)
[2025-02-21 22:00] VITALS: BP 161/67; PULSE 90; TEMP 36.9; O2SAT 97
--- NOTE | 2025-02-21 23:09 | MHC.CARE ---
Pt was evaluated by the Care Team and referred to Psych consult for further evaluation. Further follow up will occur secondary to psychiatry completing the evaluation.
[2025-02-21 23:34] VITALS: BP 199/108; PULSE 100; RESP 16; TEMP 36.6; O2SAT 98
--- NOTE | 2025-02-22 02:07 | PC.NURSE ---
Pt is having visual/auditory hallucinations of a character named Fátima whom is and wearing a hat, stating that she is in the corner of the room, at times pt does not make sense in her word usage, mayonnaise mixer was used , will notify MD
[2025-02-22] MEDS: traZODone HCL 25 MG HALFTAB PO (03:57)
[2025-02-22 06:09] VITALS: BP 192/91; PULSE 108; RESP 22; TEMP 36.5; O2SAT 99
--- NOTE | 2025-02-22 06:16 | MHC.EDTECH ---
attempted patient belongings list, no family at bedside patient very confused. only a blue bag with clothing and depends at bed side, un aware if patient has dentures or any other belongings
[2025-02-22 08:16] VITALS: PULSE 95; RESP 18; O2SAT 100
--- NOTE | 2025-02-22 08:20 | PC.NURSE ---
Assumed care of pt at 0700. Pt resting on stretcher with eyes closed, alert to verbal stimuli but falls back asleep, respirations even and unlabored, no increased wob/sob noted, maintaining O2 sat >92% on RA, appears in no distress. This RN attempted to obtain vitals- unable to obtain BP d/t becoming combative with this RN (swatting at hand/grabbing). Pt not given breakfast tray d/t somnolent/inability to stay alert to safely swallow PO. Med rec completed and verified with pharmacy- DELL Troy made aware, medications ordered. Call miller within reach, all needs met at this time.
--- NOTE | 2025-02-22 10:39 | PHA.MEDREC ---
Addendum entered by Chaitanya Crowe PharmD 02/22/25 10:57: reviewed Original Note: Pharmacy Consult ? Medication Reconciliation Pharmacy has completed the medication reconciliation. Utilized list from [facility] to confirm med list.
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
[2025-02-22 14:00] VITALS: BP 178/88; PULSE 82; RESP 22; O2SAT 96
[2025-02-22 18:07] VITALS: BP 178/88; PULSE 82; RESP 22; TEMP 36.5; O2SAT 96
--- OUTSIDE RECORDS SUMMARY | 2025-04-16 20:00 | XMS_ITS | Clinical Summary ---
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 Active 2024-05 0-08 00:00: 00 Allergies, Adverse Reactions, Alerts Allergy Name Allergy Type Status Severity Reaction(s) Onset Date Inactive Date Treating Clinician Comments NKA Propensity to adverse reactions Active 2025-02 17:42:0 6 Immunizations Ordered Immunization Name Filled Immunization Name Date Status Comments Refusal Reason REFUSED COVID, COVID-19 2025-02-17 00:00:00 Vital Signs Vital Name Observation Time Observation Value Commen ts Temperature 2025-02-17 18:18:00.000 98.6 [degF] BMI (%) 2025-02-17 17:53:35.000 27 kg/m2 Height 2025-02-17 17:52:23.000 61 [in_us] Pulse 2025-02-17 18:18:00.000 82 /min Respirations 2025-02-17 18:18:00.000 20 /min Weight (lbs) 2025-02-17 17:53:35.000 144 [lb_av] Systolic Blood Pressure 2025-02-17 18:18:00.000 142 mm [Hg] Diastolic Blood Pressure 2025-02-17 18:18:00.000 78 mm [Hg] Plan of Treatment Planned Activity Planned Date Details Comments Future Scheduled Test SKILLED NU RSE TO EVALUATE PATIENT, IDENTIFY PRIMARY AND CO-MORBID CONDITIONS CODED PER CODING GUIDELINES, AND DEVELOP PATIENT SPECIFIC PLAN OF CARE THAT INCLUDES PATIENT GOAL FOR HOME HEALTH. [code = SKILLED NURSE TO EVALUATE PATIENT, IDENTIFY PRIMARY AND CO-MORBID CONDITIONS CODED PER CODING GUIDELINES, AND DEVELOP PATIENT SPECIFIC PLAN OF CARE THAT INCLUDES PATIENT GOAL FOR HOME HEALTH.] Future Scheduled Test SKILLED NU RSE TO PRE-POUR MEDICATION PER MEDICATION LIST WEEKLY. [code = SKILLED NURSE TO PRE-POUR MEDICATION PER MEDICATION LIST WEEKLY.] Future Scheduled Test PATIENT MA Y HAVE ONE SET OF EMERGENCY MEDICATION NOT TO BE PRE-POURED ANY SOONER THAN 24 HOURS BEFORE SEVERE INCLEMENT WEATHER OR EMERGENT EVENT AND FOLLOWING SKILLED NURSE EVALUATION OF PATIENT SAFETY. [code = PATIENT MAY HAVE ONE SET OF EMERGENCY MEDICATION NOT TO BE PRE-POURED ANY SOONER THAN 24 HOURS BEFORE SEVERE INCLEMENT WEATHER OR EMERGENT EVENT AND FOLLOWING SKILLED NURSE EVALUATION OF PATIENT SAFETY.] Future Scheduled Test SKILLED NU RSE TO O/A OF PATIENTS MENTAL/BEHAVIORAL STATUS, ASSESS VITAL SIGNS EVERY VISIT ALLOW 2 PRNS FOR MEDICATION MANAGEMENT. [code = SKILLED NURSE TO O/A OF PATIENTS MENTAL/BEHAVIORAL STATUS, ASSESS VITAL SIGNS EVERY VISIT ALLOW 2 PRNS FOR MEDICATION MANAGEMENT.] Future Scheduled Test SKILLED NU RSE FOR O/A OF NEUROCOGNITIVE AND BEHAVIORAL STATUS [code = SKILLED NURSE FOR O/A OF NEUROCOGNITIVE AND BEHAVIORAL STATUS] Future Scheduled Test SKILLED NU RSE FOR O/A OF GENERAL HEALTH STATUS OF PAIN, CARDIAC, RESPIRATORY, GASTROINTESTINAL, GENITOURINARY, SKIN, NEUROLOGIC, ENDOCRINE SYSTEMS TO IDENTIFY CHANGES ASSOCIATED WITH EXACERBATION FOR EARLY INTERVENTION OF COMPLICATIONS WEEKLY. [code = SKILLED NURSE FOR O/A OF GENERAL HEALTH STATUS OF PAIN, CARDIAC, RESPIRATORY, GASTROINTESTINAL, GENITOURINARY, SKIN, NEUROLOGIC, ENDOCRINE SYSTEMS TO IDENTIFY CHANGES ASSOCIATED WITH EXACERBATION FOR EARLY INTERVENTION OF COMPLICATIONS WEEKLY.] Future Scheduled Test SKILLED NU RSE FOR O/A AND SKILLED TEACHING OF COPING SKILLS TO MANAGE ANXIETY AND MAINTAIN SAFETY. [code = SKILLED NURSE FOR O/A AND SKILLED TEACHING OF COPING SKILLS TO MANAGE ANXIETY AND MAINTAIN SAFETY.] Future Scheduled Test SKILLED NU RSE FOR O/A AND SKILLED TEACHING RELATED TO MANAGEMENT OF DEPRESSIVE SYMPTOMS AND/OR DEPRESSION. SN TO REPORT SIGNIFICANT CHANGE IN DEPRESSIVE SYMPTOMS TO CLINICAL PROVIDER FOR EARLY INTERVENTION. [code = SKILLED NURSE FOR O/A AND SKILLED TEACHING RELATED TO MANAGEMENT OF DEPRESSIVE SYMPTOMS AND/OR DEPRESSION. SN TO REPORT SIGNIFICANT CHANGE IN DEPRESSIVE SYMPTOMS TO CLINICAL PROVIDER FOR EARLY INTERVENTION.] Future Scheduled Test SKILLED NU RSE FOR O/A AND TEACHING OF ENDOCRINE SYSTEM TO IDENTIFY CHANGES ASSOCIATED WITH EXACERBATION OF DM FOR EARLY INTERVENTION OF COMPLICATIONS. [code = SKILLED NURSE FOR O/A AND TEACHING OF ENDOCRINE SYSTEM TO IDENTIFY CHANGES ASSOCIATED WITH EXACERBATION OF DM FOR EARLY INTERVENTION OF COMPLICATIONS.] Future Scheduled Test SKILLED NU RSE FOR O/A AND TEACHING OF DIABETIC MANAGEMENT INCLUDING BLOOD SUGAR MONITORING/USE OF GLUCOMETER, DIABETIC DIET, LOWER EXTREMITY SKIN INSPECTION, PROPER SKIN/FOOT CARE, AND SIGNS AND SYMPTOMS HYPO/HYPERGLYCEMIA TO REPORT. [code = SKILLED NURSE FOR O/A AND TEACHING OF DIABETIC MANAGEMENT INCLUDING BLOOD SUGAR MONITORING/USE OF GLUCOMETER, DIABETIC DIET, LOWER EXTREMITY SKIN INSPECTION, PROPER SKIN/FOOT CARE, AND SIGNS AND SYMPTOMS HYPO/HYPERGLYCEMIA TO REPORT.] Future Scheduled Test SKILLED NU RSE TO OBTAIN BLOOD SUGAR PRN FOR SIGNS AND SYMPTOMS OF HYPO/HYPERGLYCEMIA. IF OBTAINED BY PATIENT/CAREGIVER PRIOR TO VISIT AND PATIENT IS NOT SYMPTOMATIC, SKILLED NURSE TO RECORD READING FROM PATIENT LOG. [code = SKILLED NURSE TO OBTAIN BLOOD SUGAR PRN FOR SIGNS AND SYMPTOMS OF HYPO/HYPERGLYCEMIA. IF OBTAINED BY PATIENT/CAREGIVER PRIOR TO VISIT AND PATIENT IS NOT SYMPTOMATIC, SKILLED NURSE TO RECORD READING FROM PATIENT LOG.] Future Scheduled Test SKILLED NU RSE FOR O/A, TEACHING AND SELF-MANAGEMENT RELATED TO HEART FAILURE. INSTRUCT PATIENT/CAREGIVER ON SIGNS AND SYMPTOMS OF EXACERBATION TO REPORT. [code = SKILLED NURSE FOR O/A, TEACHING AND SELF-MANAGEMENT RELATED TO HEART FAILURE. INSTRUCT PATIENT/CAREGIVER ON SIGNS AND SYMPTOMS OF EXACERBATION TO REPORT.] Future Scheduled Test SKILLED NU RSE TO PERFORM HOME SAFETY AND FALL ASSESSMENT AND PROVIDE INSTRUCTION TO IMPLEMENT HOME SAFETY AND FALL PREVENTION STRATEGIES. [code = SKILLED NURSE TO PERFORM HOME SAFETY AND FALL ASSESSMENT AND PROVIDE INSTRUCTION TO IMPLEMENT HOME SAFETY AND FALL PREVENTION STRATEGIES.] Future Scheduled Test SKILLED NU RSE FOR OBSERVATION AND ASSESSMENT OF PATIENT S PAIN LEVEL AND EFFECTIVENESS OF PAIN MANAGEMENT REGIMEN. SKILLED NURSE TO INSTRUCT PATIENT/CAREGIVER REGARDING PHARMACOLOGIC AND NON-PHARMACOLOGIC PAIN CONTROL MEASURES. SKILLED NURSE TO REPORT TO PHYSICIAN IF PAIN IS UNCONTROLLED WITH CURRENT PAIN MANAGEMENT REGIMEN. [code = SKILLED NURSE FOR OBSERVATION AND ASSESSMENT OF PATIENT S PAIN LEVEL AND EFFECTIVENESS OF PAIN MANAGEMENT REGIMEN. SKILLED NURSE TO INSTRUCT PATIENT/CAREGIVER REGARDING PHARMACOLOGIC AND NON-PHARMACOLOGIC PAIN CONTROL MEASURES. SKILLED NURSE TO REPORT TO PHYSICIAN IF PAIN IS UNCONTROLLED WITH CURRENT PAIN MANAGEMENT REGIMEN.] Future Scheduled Test SKILLED NU RSE FOR O/A OF RESPIRATORY SYSTEM TO IDENTIFY CHANGES ASSOCIATED WITH EXACERBATION AND TO PROVIDE SKILLED TEACHING ON MANAGEMENT OF ASTHMA RESPIRATORY DISEASE PROCESS. [code = SKILLED NURSE FOR O/A OF RESPIRATORY SYSTEM TO IDENTIFY CHANGES ASSOCIATED WITH EXACERBATION AND TO PROVIDE SKILLED TEACHING ON MANAGEMENT OF ASTHMA RESPIRATORY DISEASE PROCESS.] Future Scheduled Test PATIENT ANDERSON S A RISK OF HOSPITALIZATION AND ED USE. SKILLED NURSE TO ESTABLISH SUPPORT MEASURES TO MINIMIZE RISK OF HOSPITALIZATION AND ED USE, AND INSTRUCT PATIENT/CAREGIVER ON METHODS TO REDUCE AVOIDABLE HOSPITALIZATION AND ED USE. [code = PATIENT HAS A RISK OF HOSPITALIZATION AND ED USE. SKILLED NURSE TO ESTABLISH SUPPORT MEASURES TO MINIMIZE RISK OF HOSPITALIZATION AND ED USE, AND INSTRUCT PATIENT/CAREGIVER ON METHODS TO REDUCE AVOIDABLE HOSPITALIZATION AND ED USE.] Future Scheduled Test SKILLED NU RSE TO REVIEW PATIENT MEDICATIONS. INSTRUCT PATIENT/CAREGIVER ON MONITORING OF EFFECTIVENESS, ADVERSE DRUG REACTIONS, SIDE EFFECTS OF ALL MEDICATIONS (PRESCRIPTION/-OTC), AND HOW AND WHEN TO REPORT PROBLEMS. [code = SKILLED NURSE TO REVIEW PATIENT MEDICATIONS. INSTRUCT PATIENT/CAREGIVER ON MONITORING OF EFFECTIVENESS, ADVERSE DRUG REACTIONS, SIDE EFFECTS OF ALL MEDICATIONS (PRESCRIPTION/-OTC), AND HOW AND WHEN TO REPORT PROBLEMS.] Future Scheduled Test SKILLED NU RSE FOR O/A OF MUSCULOSKELETAL STATUS AND TEACHING ON MEASURES TO MANAGE WEAKNESS AND TO MAINTAIN SAFETY WITH ACTIVITY [code = SKILLED NURSE FOR O/A OF MUSCULOSKELETAL STATUS AND TEACHING ON MEASURES TO MANAGE WEAKNESS AND TO MAINTAIN SAFETY WITH ACTIVITY] Future Scheduled Test SKILLED NU RSE FOR O/A OF CLIENT'S SOCIAL ISOLATION AND PROVIDE ASSISTANCE TO CLIENT IN DEVELOPMENT OF PLANNED ACTIVITIES [code = SKILLED NURSE FOR O/A OF CLIENT'S SOCIAL ISOLATION AND PROVIDE ASSISTANCE TO CLIENT IN DEVELOPMENT OF PLANNED ACTIVITIES] Future Scheduled Test SKILLED NU RSE TO ASSESS PATIENT S PSYCHOSOCIAL STATUS TO IDENTIFY POTENTIAL ISSUES THAT MAY COMPLICATE THE PROVISION OF THE PLAN OF CARE INCLUDING THE PATIENT S ABILITY TO ACCESS COMMUNITY RESOURCES AND PSYCHOSOCIAL SUPPORT SERVICES. [code = SKILLED NURSE TO ASSESS PATIENT S PSYCHOSOCIAL STATUS TO IDENTIFY POTENTIAL ISSUES THAT MAY COMPLICATE THE PROVISION OF THE PLAN OF CARE INCLUDING THE PATIENT S ABILITY TO ACCESS COMMUNITY RESOURCES AND PSYCHOSOCIAL SUPPORT SERVICES.] Future Scheduled Test SKILLED NU RSE WILL MAINTAIN SITUATIONAL AWARENESS FOR SAFETY AND WILL NOTIFY CLINICAL PARALEGAL INTERNSHIP AND PHYSICIAN/PROVIDER WITH ANY CHANGE IN CONDITION. [code = SKILLED NURSE WILL MAINTAIN SITUATIONAL AWARENESS FOR SAFETY AND WILL NOTIFY CLINICAL PARALEGAL INTERNSHIP AND PHYSICIAN/PROVIDER WITH ANY CHANGE IN CONDITION.] Goal Patient Goal - I WANT PAIN MY LEGS TO GO AWAY. Goal Provider Goal - A PLAN OF CARE WILL BE ESTABLISHED THAT MEETS PATIENT'S LONG TERM NEEDS AND INCLUDES PATIENT GOAL FOR HOME HEALTH. Goal Provider Goal - PATIENT WILL COMPLY WITH MEDICATION WHEN SKILLED NURSE PRE-POURS MEDICATION THROUGHOUT CERTIFICATION PERIOD. Goal Provider Goal - MEDICATION WILL BE AVAILABLE DURING INCLEMENT WEATHER OR EMERGENT EVENT THROUGHOUT CERTIFICATION PERIOD. Goal Provider Goal - ALTERED MENTAL/BEHAVIORAL STATUS WILL BE IDENTIFIED PROMPTLY AND INTERVENTION INITIATED QUICKLY TO MINIMIZE ASSOCIATED RISKS THROUGHOUT CERTIFICATION PERIOD. Goal Provider Goal - PATIENT WILL BE ABLE TO PERFORM DAILY FUNCTIONS AND MAINTAIN OPTIMAL BEHAVIORAL/NEUROCOGNITIVE STATUS THROUGHOUT CERTIFICATION PERIOD. Goal Provider Goal - CHANGE IN GENERAL HEALTH STATUS WILL BE IDENTIFIED AND REPORTED TO PHYSICIAN FOR PROMPT INTERVENTION TO MINIMIZE ASSOCIATED RISKS THROUGHOUT CERTIFICATION PERIOD. Goal Provider Goal - PATIENT WILL BE ABLE TO PERFORM DAILY FUNCTIONS AND HAVE OPTIMAL IMPROVEMENT IN LEVEL OF ANXIETY THROUGHOUT CERTIFICATION PERIOD. Goal Provider Goal - PATIENT WILL REMAIN SAFE WITHOUT DECOMPENSATION IN DEPRESSIVE CONDITION, WHILE MAINTAINING OPTIMAL LEVEL OF MENTAL HEALTH AND WELL BEING THROUGHOUT CERTIFICATION PERIOD. Goal Provider Goal - PATIENT/CAREGIVER WILL VERBALIZE SIGNS AND SYMPTOMS OF EXACERBATION OF DM TO REPORT TO NURSE/PHYSICIAN THROUGHOUT THE CERTIFICATION PERIOD. Goal Provider Goal - PATIENT/CAREGIVER WILL VERBALIZE/DEMONSTRATE KNOWLEDGE OF DIABETIC MANAGEMENT. CHANGES IN DIABETIC STATUS WILL BE IDENTIFIED AND REPORTED TO PHYSICIAN FOR PROMPT INTERVENTION THROUGHOUT THE CERTIFICATION PERIOD. Goal Provider Goal - BLOOD SUGAR READING WILL BE OBTAINED ORDERED THROUGHOUT CERTIFICATION PERIOD. Goal Provider Goal - PATIENT/CAREGIVER WILL VERBALIZE/DEMONSTRATE KNOWLEDGE AND MANAGEMENT OF HEART FAILURE DISEASE PROCESS BY END OF EPISODE. Goal Provider Goal - PATIENT/CAREGIVER WILL VERBALIZE/DEMONSTRATE EFFECTIVE HOME SAFETY AND FALL PREVENTION STRATEGIES THROUGHOUT CERTIFICATION PERIOD. Goal Provider Goal - PATIENT/CAREGIVER WILL DEMONSTRATE UNDERSTANDING OF PHARMACOLOGIC AND NONPHARMACOLOGIC PAIN CONTROL MEASURES AND PATIENT WILL HAVE IMPROVEMENT IN PAIN INTERFERING WITH ACTIVITY EVIDENCED BY PAIN AT A LEVEL THAT IS ACCEPTABLE TO THE PATIENT AND PAIN LEVEL WITHIN ESTABLISHED PARAMETERS BY END OF CERTIFICATION PERIOD. Goal Provider Goal - PATIENT/CAREGIVER WILL VERBALIZE/DEMONSTRATE MANAGEMENT OF ASTHMA RESPIRATORY DISEASE PROCESS. CHANGES IN RESPIRATORY STATUS WILL BE IDENTIFIED AND REPORTED TO PHYSICIAN FOR PROMPT INTERVENTION THROUGHOUT THE CERTIFICATION PERIOD. Goal Provider Goal - PATIENT WILL HAVE SUPPORT MEASURES ESTABLISHED TO PREVENT HOSPITALIZATION AND ED USE AND PATIENT/CAREGIVER WILL VERBALIZE/DEMONSTRATE METHODS TO REDUCE AVOIDABLE HOSPITALIZATION AND ED USE BY END OF EPISODE. Goal Provider Goal - PATIENT/CAREGIVER WILL VERBALIZE UNDERSTANDING OF EDUCATION PROVIDED ON MEDICATIONS BY THE END OF THE CERTIFICATION PERIOD. Goal Provider Goal - PATIENT/CAREGIVER WILL VERBALIZE/DEMONSTRATE ABILITY TO MANAGE WEAKNESS MUSCULOSKELETAL DISEASE WHILE MAINTAINING SAFETY THROUGHOUT THE EPISODE. Goal Provider Goal - PATIENT WILL DEMONSTRATE AN INCREASED INTEREST IN SOCIALIZATION AND ACTIVITIES BY THE END OF THE CERTIFICATION PERIOD. Goal Provider Goal - PSYCHOSOCIAL NEEDS WILL BE IDENTIFIED AND PLAN IMPLEMENTED TO MINIMIZE RISK THROUGHOUT CERTIFICATION PERIOD. Goal Provider Goal - PATIENT WILL REMAIN SAFE IN THE COMMUNITY AND WILL BE FREE OF DANGER TO SELF AND OTHERS THROUGHOUT THE CERTIFICATION PERIOD. Encounters Start Date/Time End Date/Time Encounter Type Admission Type Attending [facility] Care Department Encounter ID Discharge Date Discharge Status Discharge Condition Discharge Reason Percent Goals Met 2025-02-17 00:00:00 2025-04-17 00:00:00 Outpatient NEW ADMISSION [facility] [id number] [id number]
== END 2025-02-22 17:25 | disposition home or self-care (01) ==
PROVIDERS: Emergency Provider Emergency Medicine; PCP Internal Medicine
DX: G30.9 Alzheimer's disease, unspecified (principal); F02.811 Dementia in other diseases classified elsewhere, unspecified severity, with agitation; R45.6 Violent behavior; Z03.818 Encounter for observation for suspected exposure to other biological agents ruled out; Z79.899 Other long term (current) drug therapy
CPT/HCPCS: 71045; 80048; 80076; 81003; 82947; 83690; 84484; 85025; 87637; 99284; S9485

== ENCOUNTER → 2025-02-21 14:04 | Outpatient (BNV) | payer OTHER, SELFPAY | PROVIDERS: Emergency Provider Emergency Medicine; PCP Internal Medicine; Visit Provider Radiology Diagnostic Radiology | DX: Z00.00 Encounter for general adult medical examination without abnormal findings (principal); R41.89 Other symptoms and signs involving cognitive functions and awareness | CPT/HCPCS: 71045 ==

== ENCOUNTER → 2025-02-21 14:42 | Outpatient (BNV) | payer OTHER, SELFPAY | PROVIDERS: Emergency Provider Emergency Medicine; PCP Internal Medicine; Visit Provider Nurse Practitioner Family | DX: F09 Unspecified mental disorder due to known physiological condition (principal) | CPT/HCPCS: 99284 ==